=== PATIENT | female | born 1975 | race Caucasian/White ===

== ENCOUNTER 2016-03-30 15:56 | Emergency (ER) | payer MEDICARE, MEDICAID ==
--- NOTE | 2016-03-30 16:24 | ER Document Report ---
ED Medical Screen (RME) - General Stated Complaint: POSSIBLE ABSCESS Mode of Arrival: Ambulatory Information source: Patient Notes: Patient presents to the emergency department with complaints of vaginal abscess that started 3 days ago. Denies fever vomiting diarrhea reports upset stomach. Denies history of MRSA I have greeted and performed a rapid initial assessment of this patient. A comprehensive ED assessment and evaluation of the patient, analysis of test results and completion of the medical decision making process will be conducted by additional ED providers. TRAVEL OUTSIDE OF THE [place] IN LAST 30 DAYS: No Past Medical History Pulmonary Medical History: Reports: Hx COPD Psychiatric Medical History: Reports: Hx Bipolar Disorder, Hx Post Traumatic Stress Disorder Past Surgical History: Reports: Hx Breast Surgery - lumpectomy, Hx Mastectomy - LP shunt, Hx Orthopedic Surgery - left ankle, Hx Tubal Ligation Physical Exam - Vital signs Vitals: Temp Pulse Resp BP Pulse Ox 98.0 F 94 16 129/73 H 97 03/30/16 15:59 03/30/16 15:59 03/30/16 15:59 03/30/16 15:59 03/30/16 15:59 Course - Vital Signs Vital signs: Temp Pulse Resp BP Pulse Ox 98.0 F 94 16 129/73 H 97 03/30/16 15:59 03/30/16 15:59 03/30/16 15:59 03/30/16 15:59 03/30/16 15:59
[2016-03-30] MEDS ORDERED: LIDOCAINE 2% JELLY 30 ML TUBE TOP ONE (19:25)
[2016-03-30] MEDS ORDERED: DOXYCYCLINE HYCLATE 100 MG TABLET PO ONE (19:25)
--- NOTE | 2016-03-30 19:31 | ER Document Report ---
ED Skin Rash/Insect Bite/Abscs - General Chief Complaint: Abscess Stated Complaint: POSSIBLE ABSCESS Mode of Arrival: Ambulatory Information source: Patient Notes: Pt is a 40 year old female who presents to the ER today for possible abscess to her vagina x 2 days. She denies fever, chills, drainage, hx of MRSA or abscesses , herpes. TRAVEL OUTSIDE OF THE [place] IN LAST 30 DAYS: No - Related Data Allergies/Adverse Reactions: acetaminophen [From Tylenol-Codeine #3] Allergy (Verified 03/30/16 16:25) codeine [From Tylenol-Codeine #3] Allergy (Verified 03/30/16 16:25) Penicillins Allergy (Verified 03/30/16 16:25) Past Medical History - General Information source: Patient - Social History Smoking Status: Current Every Day Smoker Chew tobacco use (# tins/day): No Drug Abuse: None Family History: Reviewed & Not Pertinent Patient has suicidal ideation: No Patient has homicidal ideation: No Pulmonary Medical History: Reports: Hx COPD Renal/ Medical History: Denies: Hx Peritoneal Dialysis Psychiatric Medical History: Reports: Hx Bipolar Disorder, Hx Post Traumatic Stress Disorder Past Surgical History: Reports: Hx Breast Surgery - lumpectomy, Hx Mastectomy - LP shunt, Hx Orthopedic Surgery - left ankle, Hx Tubal Ligation Review of Systems - Review of Systems Constitutional: No symptoms reported EENT: No symptoms reported Cardiovascular: No symptoms reported Respiratory: No symptoms reported Gastrointestinal: No symptoms reported Genitourinary: No symptoms reported Female Genitourinary: See HPI Musculoskeletal: No symptoms reported Skin: See HPI Hematologic/Lymphatic: No symptoms reported Neurological/Psychological: No symptoms reported Physical Exam - Vital signs Vitals: Temp Pulse Resp BP Pulse Ox 98.0 F 94 16 129/73 H 97 03/30/16 15:59 03/30/16 15:59 03/30/16 15:59 03/30/16 15:59 03/30/16 15:59 - Notes Notes: PHYSICAL EXAMINATION: GENERAL: Well-appearing and in no acute distress. HEAD: Atraumatic, normocephalic. EYES: Pupils equal round and reactive to light, extraocular movements intact, sclera anicteric, conjunctiva are normal. NECK: Normal range of motion, supple without lymphadenopathy LUNGS: CTAB and equal. No wheezes rales or rhonchi. HEART: Regular rate and rhythm without murmurs ABDOMEN: Soft, no tenderness. No guarding, no rebound EXTREMITIES: Normal range of motion, no pitting edema. No cyanosis. NEUROLOGICAL: Cranial nerves grossly intact. Normal sensory/motor exams. PSYCH: Normal mood, normal affect. SKIN: Warm, Dry, normal turgor, erythematous ulcer with purulent discharge, no fluctuance, induration or edema at all, tender to palpation Course - Re-evaluation Re-evalutation: 03/30/16 19:33 Wound culture pending. Patient placed on doxycycline due to allergies to Bactrim and penicillin. Clinically this is more consistent with infected ulcer of the skin, I do not appreciate any abscess at all. - Vital Signs Vital signs: Temp Pulse Resp BP Pulse Ox 98.0 F 94 16 129/73 H 97 03/30/16 15:59 03/30/16 15:59 03/30/16 15:59 03/30/16 15:59 03/30/16 15:59 Discharge - Discharge Clinical Impression: Ulcer of genital labia Infected ulcer of skin Qualifiers: Non-pressure ulcer stage: limited to breakdown of skin Qualified Code(s): L98.491 - Non-pressure chronic ulcer of skin of other sites limited to breakdown of skin Condition: Stable Disposition: HOME, SELF-CARE Additional Instructions: Return immediately for any new or worsening symptoms. Follow up with primary care provider, call tomorrow to make followup appointment. Prescriptions: Doxycycline Hyclate 100 mg PO BID #14 capsule Forms: Return to Work
[2016-03-30 20:50] VITALS: BP 111/76
== END 2016-03-30 20:12 | disposition home or self-care (01) ==
LOC: ER 15:56
DX: N76.6 Ulceration of vulva (principal); L98.491 Non-pressure chronic ulcer of skin of other sites limited to breakdown of skin; F17.210 Nicotine dependence, cigarettes, uncomplicated
CPT/HCPCS: 99282; 87070; 87205; A9270; 87075; 87077

== ENCOUNTER 2016-08-21 13:43 | Emergency (ER) | payer MEDICARE, MEDICAID ==
[2016-08-21 13:49] VITALS: BP 129/83
[2016-08-21] MEDS ORDERED: KETOROLAC TROMETHAMINE 60 MG/2 ML SDV IM ONE (17:26)
--- NOTE | 2016-08-21 17:31 | ER Document Report ---
HPI - HPI Patient complains to provider of: right side neck and shoulder pain Onset: Last week Onset/Duration: Sudden, Persistent Quality of pain: Achy Severity: Severe Pain Level: 4 Context: Patient presents to the emergency department with complaints of right sided neck and shoulder pain. She reports the pain runs down her right arm. Reports pain with movement. She reports she was moving furniture last week and her shoulder started hurting afterwards. Denies trauma.. She denies past medical history of injury to the shoulder or arm. She reports she has been taking naproxen and ibuprofen without relief of symptoms. Associated Symptoms: None Exacerbated by: Movement Relieved by: Denies Similar symptoms previously: No Recently seen / treated by doctor: No - DERM Skin Color: Normal Past Medical History - General Information source: Patient Last Menstrual Period: 08/16/16 - Social History Smoking Status: Current Every Day Smoker Cigarette use (# per day): Yes Frequency of alcohol use: None Drug Abuse: None Family History: Reviewed & Not Pertinent Patient has suicidal ideation: No Patient has homicidal ideation: No Pulmonary Medical History: Reports: Hx COPD Renal/ Medical History: Denies: Hx Peritoneal Dialysis Psychiatric Medical History: Reports: Hx Bipolar Disorder, Hx Post Traumatic Stress Disorder Past Surgical History: Reports: Hx Breast Surgery - lumpectomy, Hx Mastectomy - LP shunt, Hx Orthopedic Surgery - left ankle, Hx Tubal Ligation Vertical Provider Document - CONSTITUTIONAL Agree With Documented VS: Yes Exam Limitations: No Limitations General Appearance: WD/WN, No Apparent Distress - INFECTION CONTROL TRAVEL OUTSIDE OF THE [place] IN LAST 30 DAYS: No - HEENT HEENT: Atraumatic, Normocephalic - NECK Neck: Normal Inspection - right sided neck pain, no vertebral tenderness, no erythema/warmth/swelling, Supple. negative: Lymphadenopathy-Left, Lymphadenopathy-Right - RESPIRATORY Respiratory: Breath Sounds Normal, No Respiratory Distress O2 Sat by Pulse Oximetry: 97 - CARDIOVASCULAR Cardiovascular: Regular Rate - MUSCULOSKELETAL/EXTREMETIES Musculoskeletal/Extremeties: Tender - right shoulder ttp, c/o pain with active/ passive movement when lifting arm above head, anteriorly and laterally, no obvious deformity, no swelling/no warmth/no erythema, good radial pulse - NEURO Level of Consciousness: Awake, Alert, Appropriate Motor/Sensory: No Motor Deficit - DERM Integumentary: Warm, Dry Adult Front & Back Diagram: 1 - c/o pain Course - Re-evaluation Re-evalutation: 08/21/16 17:30 Patient instructed on muscle relaxer and Toradol. Patient was instructed on the importance of follow-up with Dr. Nguyễn for referral to orthopedics. She verbalized understanding. - Vital Signs Vital signs: Temp Pulse Resp BP Pulse Ox 98.6 F 94 16 129/83 H 97 08/21/16 13:46 08/21/16 13:46 08/21/16 13:46 08/21/16 13:46 08/21/16 13:46 Discharge - Discharge Clinical Impression: right side neck and shoulder pain, Elevated blood pressure reading Condition: Stable Disposition: HOME, SELF-CARE Instructions: Toradol Injection ([facility]), Muscle Relaxers ([facility]), Ice Packs ([facility]) Additional Instructions: *You have been evaluated for right shoulder and neck pain *Rest/Ice packs as indicated *Follow up with Dr Nguyễn this week for referral to orthopedics as indicated *Take medication as prescribed *Return to ED for worsening condition, changes, needs Monitor your blood pressure. Your blood pressure was elevated today. This may be because you were anxious, in pain or because you need medication. It is important to follow up with your primary care provider for full evaluation. Prescriptions: Cyclobenzaprine HCl [Flexeril 5 mg Tablet] 5 mg PO TID #15 tablet Forms: Elevated Blood Pressure
== END 2016-08-21 18:02 | disposition home or self-care (01) ==
LOC: ER 13:43
DX: M54.2 Cervicalgia (principal); M25.511 Pain in right shoulder; M79.601 Pain in right arm; R03.0 Elevated blood-pressure reading, without diagnosis of hypertension; F17.210 Nicotine dependence, cigarettes, uncomplicated; J44.9 Chronic obstructive pulmonary disease, unspecified; Z98.51 Tubal ligation status
CPT/HCPCS: 99283; 96372; J1885

== ENCOUNTER → 2016-09-04 | Outpatient (CLI) | payer MEDICARE, MEDICAID ==
--- NOTE | 2016-09-04 12:03 | RADIOLOGY REPORT (SQ) ---
EXAM DESCRIPTION: SHOULDER RIGHT 2 OR MORE VIEWS COMPLETED DATE/TIME: 09/04/2016 11:21 am REASON FOR STUDY: PAIN IN RIGHT SHOULDER M25.511 PAIN IN RIGHT SHOULDER COMPARISON: None. NUMBER OF VIEWS: Three views. TECHNIQUE: Internal rotation, external rotation, and Y view images acquired of the right shoulder. LIMITATIONS: None. FINDINGS: MINERALIZATION: Normal. BONES: No acute fracture or dislocation. No worrisome bone lesions. JOINTS: No dislocation. VISUALIZED LUNGS AND RIBS: No pneumothorax. No rib fracture. SOFT TISSUES: No radiopaque foreign body. OTHER: No other significant finding. IMPRESSION: NEGATIVE STUDY OF THE RIGHT SHOULDER. NO RADIOGRAPHIC EVIDENCE OF ACUTE INJURY. TECHNICAL DOCUMENTATION: JOB ID: [id number] [employer]- All Rights Reserved
== END ==
LOC: OD 10:55
PROVIDERS: ATTEND Physician Assistant
DX: M25.511 Pain in right shoulder (principal)

== ENCOUNTER → 2016-10-13 | Outpatient (CLI) | payer MEDICARE, MEDICAID ==
--- NOTE | 2016-10-13 17:20 | WOMENS IMAGING REPORT ---
EXAM DESCRIPTION: 3D SCREENING MAMMO BILAT COMPLETED DATE/TIME: 10/13/2016 1:56 pm REASON FOR STUDY: ROUTINE SCREENING; Z12.31 Z12.31 ENCNTR SCREEN MAMMOGRAM FOR MALIGNANT NEOPLASM O F MANUELA COMPARISON: Baseline study TECHNIQUE: Standard craniocaudal and mediolateral oblique views of each breast recorded using digita l acquisition and breast tomosynthesis. LIMITATIONS: None. FINDINGS: No masses, calcifications or architectural distortion. No areas of suspicion. Read with the assistance of CAD. .[facility] - R2 Cenova Version 1.3 .[facility] - R2 Cenova Version 1.3 .[facility] - R2 Cenova Version 2.4 .[facility] R2 Cenova Version 2.4 .[facility] - R2 Rn Interventional Version 9.2 IMPRESSION: NORMAL MAMMOGRAM. BIRADS 1. BREAST DENSITY: c. The breasts are heterogeneously dense, which may obscure small masses. BIRAD: 1 NEGATIVE RECOMMENDATION: ROUTINE SCREENING Please continue yearly bilateral screening tomosynthesis in October 2017 COMMENT: The patient has been notified of the results by letter per SA requirements. Additional no tification policies are in place for contacting patient with suspicious or incomplete findings. Quality ID #225: The [employer] recommends an annual screening mammogram for women aged 40 years or over. This facility utilizes a reminder system to ensure that all patients receive reminder letters, and/or direct phone calls for appointments. This includes reminders for routine scr eening mammograms, diagnostic mammograms, or other Breast Imaging Interventions when appropriate. Th is patient will be placed in the appropriate reminder system. The [employer] (ACR) has developed recommendations for screening MRI of the breast s in certain patient populations, to be used in conjunction with mammography. Breast MRI surveillanc e may be appropriate for women with more than 20% lifetime risk of developing breast cancer as deter mined by genetic testing, significant family history of the disease, or history of mantle radiation f or Hodgkins Disease. ACR Practice Guidelines 2008. DBT Technology DBT is a type of tomographic mammography. With conventional mammography, overlapping breast tissue ma y make lesions difficult to detect, even with good compression. DBT uses an x-ray tube that rotates a round the breast, taking images at different angles. These images are then combined to create thin sl ices of the breast that the radiologist can view as a 3D reconstruction. The [employer] unit can perform full-field digital mammograms (2D imaging); or DBT (3D imaging); or both, in a combination mode that quickly performs both the mammogram and the tomosynthesis scan while the breast is still compressed. PQRS 6045F: Fluoroscopic imaging is not utilized for breast tomosynthesis. TECHNICAL DOCUMENTATION: FINDING NUMBER: (1) ASSESSMENT: (1) JOB ID: [id number] [employer]- All Rights Reserved
== END ==
LOC: WI 13:08
PROVIDERS: ATTEND Physician Assistant
DX: Z12.31 Encounter for screening mammogram for malignant neoplasm of breast (principal)
CPT/HCPCS: 77063; G0202; 77067

== ENCOUNTER → 2016-10-17 | Outpatient (CLI) | payer MEDICARE, MEDICAID ==
[2016-10-17 14:53] LABS: ANION GAP 11 (5-19); BLOOD UREA NITROGEN 8 mg/dL (7-20); CALCIUM 9.6 mg/dL (8.4-10.2); CARBON DIOXIDE 24 mmol/L (22-30); CHLORIDE 104 mmol/L (98-107); GLUCOSE 127 mg/dL (75-110); POTASSIUM 4.5 mmol/L (3.6-5.0); SODIUM 139.4 mmol/L (137-145)
== END ==
LOC: OD 13:15
PROVIDERS: ATTEND Orthopaedic Surgery
DX: Z01.810 Encounter for preprocedural cardiovascular examination (principal); Z01.812 Encounter for preprocedural laboratory examination; Z01.818 Encounter for other preprocedural examination
CPT/HCPCS: 36415; 80048

== ENCOUNTER 2016-10-19 08:39 | Day surgery (SDC) | payer MEDICARE, MEDICAID ==
[2016-10-13 11:07] LABS: ABSOLUTE BASOPHILS # (AUTO) 0.1 10^3/uL (0.0-0.2); ABSOLUTE EOSINOPHILS # (AUTO) 0.5 10^3/uL (0.0-0.6); ABSOLUTE LYMPHOCYTES (AUTO) 2.4 10^3/uL (0.5-4.7); ABSOLUTE MONOCYTES (AUTO) 1.1 10^3/uL (0.1-1.4); ABSOLUTE NEUT (AUTO) 7.4 10^3/uL (1.7-8.2); BASOPHILS % (AUTO) 0.5 % (0-2); EOSINOPHILS % (AUTO) 4.3 % (0-6); HEMATOCRIT 38.6 % (36.0-47.0); HEMOGLOBIN 12.8 g/dL (12.0-15.5); HGB HCT DIFFERENCE -0.2; LYMPHOCYTES % (AUTO) 20.9 % (13-45); MEAN CORPUSCULAR HGB CONC 33.1 g/dL (32.0-36.0); MEAN CORPUSCULAR VOLUME 88 fl (80-97); MONOCYTES % (AUTO) 9.7 % (3-13); RED CELL DISTRIBUTION WIDTH 15.4 % (11.5-14.0); SEGMENTED NEUTROPHILS % (AUTO) 64.6 % (42-78); WHITE BLOOD COUNT 11.5 10^3/uL (4.0-10.5)
[2016-10-13 11:14] LABS: APPEARANCE,URINE SLIGHTLY-CLOUDY; BILIRUBIN,URINE NEGATIVE (NEGATIVE); GLUCOSE, URINE NEGATIVE (NEGATIVE); KETONES,URINE NEGATIVE (NEGATIVE); LEUKOCYTE ESTERASE,URINE TRACE (NEGATIVE); NITRITE,URINE NEGATIVE (NEGATIVE); PROTEIN,URINE 30 mg/dL (NEGATIVE); URINE SPECIFIC GRAVITY 1.005; UROBILINOGEN,URINE NEGATIVE mg/dL (<2.0)
--- NOTE | 2016-10-13 11:25 | RADIOLOGY REPORT (SQ) ---
EXAM DESCRIPTION: CHEST PA/LATERAL COMPLETED DATE/TIME: 10/13/2016 10:59 am REASON FOR STUDY: PRE OP COMPARISON: 12/20/2015 EXAM PARAMETERS: NUMBER OF VIEWS: two views TECHNIQUE: Digital Frontal and Lateral radiographic views of the chest acquired. RADIATION DOSE: NA LIMITATIONS: none FINDINGS: LUNGS AND PLEURA: No opacities, masses or pneumothorax. No pleural effusion. MEDIASTINUM AND HILAR STRUCTURES: No masses or contour abnormalities. HEART AND VASCULAR STRUCTURES: Heart normal size. No evidence for failure. BONES: No acute findings. HARDWARE: None in the chest. OTHER: No other significant finding. IMPRESSION: NO SIGNIFICANT RADIOGRAPHIC FINDING IN THE CHEST. TECHNICAL DOCUMENTATION: JOB ID: [id number] [employer]- All Rights Reserved
[2016-10-13 11:40] LABS: ANION GAP 15 (5-19); BLOOD UREA NITROGEN 11 mg/dL (7-20); CALCIUM 9.5 mg/dL (8.4-10.2); CARBON DIOXIDE 27 mmol/L (22-30); CHLORIDE 103 mmol/L (98-107); CREATININE RESULT 0.84 mg/dL (0.52-1.25); GLUCOSE 77 mg/dL (75-110); POTASSIUM 5.1 mmol/L (3.6-5.0); SODIUM 144.5 mmol/L (137-145)
--- NOTE | 2016-10-13 13:01 | EKG REPORT ---
SEVERITY:- NORMAL ECG - SINUS RHYTHM : Confirmed by: Krystle Cabral 13-Oct-2016 13:00:05
[~2016-10-19 08:39] MED LIST: CLINDAMYCIN 600 MG/D5W RTU 600 MG/50 ML RTUPB IV PRN; LACTATED RINGERS 1000 ML IV PRN; LIDOCAINE 0.5% INJ-PF (5 MG/ML) 50 ML SDV SUBCUT PRN
[2016-10-19] MEDS ORDERED: BUPIVACAINE HCL 0.5%-EPI 1:200000 INJ/PF 30 ML VIAL ONE (09:41)
[2016-10-19] MEDS ORDERED: HYDROMORPHONE HCL INJ/PF 2 MG/ML AMPULE ONE (10:54)
[2016-10-19] MEDS ORDERED: PROPOFOL INJ 200 MG/20 ML VIAL IV ONE (10:54)
[2016-10-19] MEDS ORDERED: MIDAZOLAM 2 MG/2 ML INJ ONE (10:54)
[2016-10-19] MEDS ORDERED: IBUPROFEN INJ 800 MG/8 ML VIAL IV ONE (10:55)
[2016-10-19] MEDS ORDERED: ACETAMINOPHEN 0 ML IV ONE (10:55)
[2016-10-19] MEDS ORDERED: MORPHINE SULFATE 10 MG/ML INJ IV PRN (11:22)
[2016-10-19] MEDS ORDERED: ONDANSETRON HCL INJ/PF 4 MG/2 ML SDV IV PRN (11:22)
[2016-10-19] MEDS ORDERED: FENTANYL CITRATE INJ/PF 100 MCG/2 ML AMPUL IV PRN ×3 (11:22)
[2016-10-19] MEDS ORDERED: PROMETHAZINE HCL INJ 25 MG/1 ML VIAL IV PRN ×2 (11:22)
[2016-10-19] MEDS ORDERED: DIPHENHYDRAMINE HCL 50 MG/ML VIAL IV PRN (11:22)
[2016-10-19] MEDS ORDERED: MEPERIDINE HCL/PF INJ 25 MG/1 ML DISP.SYRIN IV PRN (11:22)
--- NOTE | 2016-10-19 12:14 | PDOC DISCHARGE SUMMARY ---
Discharge Summary (SDC) - Discharge Final Diagnosis: Removal of hardware left ankle Date of Surgery: 10/19/16 Discharge Date: 10/19/16 Condition: Good Treatment or Instructions: Follow up in 2 weeks Weight bear as tolerated Ice and elevate Prescriptions: Tramadol HCl 50 mg PO Q6HP PRN #20 tablet PRN Reason: Referrals: JACE ALCARAZ PA [Primary Care Provider] - Respiratory Treatments at Home: Deep Breathing/Coughing Discharge Activity: Keep Legs Elevated, No Lifting Over 10 Pounds, Slowly Increase Activity Home Care Assistance: None Needed Report the Following to Your Physician Immediately: Shortness of Breath, Vomiting, Increase in Pain, Fever over 101 Degrees, Unusual Bleeding, Redness, Warmth, Drainage-Yellow, Drainage-Gloria, Drainage-Green, Drainage-Foul Smelling
[2016-10-19] MEDS ORDERED: TRAMADOL HCL 50 MG TABLET PO PRN (12:15)
[2016-10-19] MEDS ORDERED: MORPHINE SULFATE 10 MG/ML INJ ONE (12:26)
[2016-10-19] MEDS ORDERED: ONDANSETRON HCL INJ/PF 4 MG/2 ML SDV ONE (13:45)
[2016-10-19] MEDS ORDERED: DEXAMETHASONE SOD PHOSPHATE INJ 4 MG/1 ML VIAL ONE (13:45)
[2016-10-19] MEDS ORDERED: METOCLOPRAMIDE HCL INJ/PF 10 MG/2 ML SDV ONE (13:45)
[2016-10-19] MEDS ORDERED: LIDOCAINE 2% INJ-PF (20 MG/ML) 10 ML AMPUL ONE (13:45)
--- NOTE | 2016-10-19 13:48 | Operative Report ---
Operative Report DATE OF SURGERY: 10/19/16 PREOPERATIVE DIAGNOSIS: Painful retained hardware left ankle POSTOPERATIVE DIAGNOSIS: Same OPERATION: removal of hardware left ankle. SURGEON: JAMESON OLIVA ANESTHESIA: LMAC TISSUE REMOVED OR ALTERED: none COMPLICATIONS: None ESTIMATED BLOOD LOSS: 10mL INTRAOPERATIVE FINDINGS: As above. PROCEDURE: Patient was brought to the operating room after receiving preoperative antibiotics in the holding area. Patient was placed in supine position where she was successfully intubated. Thigh tourniquet was applied to the left lower extremity. Left lower extremity was prepped and draped in a normal surgical fashion. Timeout was done identifying the left ankle lateral malleolus incision as the correct site. X-rays were placed on the monitor to review before surgery. The extremity was elevated and the tourniquet was inflated at 300 mmHg. Same lateral incision over the lateral malleolus was done. Dissection was taken down to the bone and plate interval. Periosteal elevator was used to do believe the tissue off of the lateral plate and prominent screws. I used a screw removal set and used a 4 5 and 3 5 screws heads to remove the syndesmotic screw and the screws in the fibula. All screws were removed successfully and the plate was then relieved and elevated off of the bone and resected as well. I did used a curette to clean out the syndesmotic incision and hole in remove most of the fibrous tissue. Copious irrigation with bulb syringe was done. 2-0 Vicryl was used to approximate the scar tissue and dermis and then 3-0 nylon was used to close the skin in a horizontal fashion. Pictures with the C-arm were taken to confirm full removal of plate and screws with no residual hardware. No fractures were noted.
[2016-10-19 14:34] VITALS: BP 126/81
--- NOTE | 2016-10-20 18:13 | RADIOLOGY REPORT (SQ) ---
EXAM DESCRIPTION: ANKLE LEFT AP/LATERAL; NO CHG FLUORO COMPLETED DATE/TIME: 10/19/2016 12:57 pm REASON FOR STUDY: HARDWARE REMOVAL LEFT ANKLE ASSISTED WITH FLUORO IN OR T84.398A [facility] COMPL OF OTH BONE DEVICES, IMPLANTS AND GRAFTS Z79.01 [facility] (CURRENT) USE OF ANTICOAGULANTS COMPARISON: None. FLUOROSCOPY TIME: Less than 10 seconds 1 C-arm image saved to PACS. TECHNIQUE: Intra-operative images acquired during surgical procedure to evaluate progress. NUMBER OF IMAGES: 1 C-arm image LIMITATIONS: None. FINDINGS: AP fluoroscopic image left ankles shows hardware removal. IMPRESSION: Intra procedural imaging and fluoro as above COMMENT: Quality ID 145: Final reports for procedures using fluoroscopy that document radiation exp osure indices, or exposure time and number of fluorographic images (if radiation exposure indices are not available) Please consult full operative report of the attending physician for description of the procedure. TECHNICAL DOCUMENTATION: JOB ID: [id number] [employer]- All Rights Reserved
--- NOTE | 2016-10-20 18:13 | RADIOLOGY REPORT (SQ) ---
EXAM DESCRIPTION: ANKLE LEFT AP/LATERAL; NO CHG FLUORO COMPLETED DATE/TIME: 10/19/2016 12:57 pm REASON FOR STUDY: HARDWARE REMOVAL LEFT ANKLE ASSISTED WITH FLUORO IN OR T84.398A [facility] COMPL OF OTH BONE DEVICES, IMPLANTS AND GRAFTS Z79.01 [facility] (CURRENT) USE OF ANTICOAGULANTS COMPARISON: None. FLUOROSCOPY TIME: Less than 10 seconds 1 C-arm image saved to PACS. TECHNIQUE: Intra-operative images acquired during surgical procedure to evaluate progress. NUMBER OF IMAGES: 1 C-arm image LIMITATIONS: None. FINDINGS: AP fluoroscopic image left ankles shows hardware removal. IMPRESSION: Intra procedural imaging and fluoro as above COMMENT: Quality ID 145: Final reports for procedures using fluoroscopy that document radiation exp osure indices, or exposure time and number of fluorographic images (if radiation exposure indices are not available) Please consult full operative report of the attending physician for description of the procedure. TECHNICAL DOCUMENTATION: JOB ID: [id number] [employer]- All Rights Reserved
== END 2016-10-19 14:45 | disposition home or self-care (01) ==
LOC: OROUT 08:39
PROVIDERS: ATTEND Orthopaedic Surgery
PROC: 0SPG04Z Removal of Internal Fixation Device from Left Ankle Joint, Open Approach (ICD-10-PCS; principal; 2016-10-19 10:45)
DX: T84.398A Other mechanical complication of other bone devices, implants and grafts, initial encounter (principal); X58.XXXA Exposure to other specified factors, initial encounter; M25.511 Pain in right shoulder; M25.572 Pain in left ankle and joints of left foot; M75.51 Bursitis of right shoulder; F17.210 Nicotine dependence, cigarettes, uncomplicated; Z79.01 Long term (current) use of anticoagulants; Z88.0 Allergy status to penicillin; Z88.2 Allergy status to sulfonamides; Z79.899 Other long term (current) drug therapy
CPT/HCPCS: 93005; 36415 ×2; 84132; 85025; 81025; 80048; 81001; 73600; 71020; 93010; 20680; J2250; J3490 ×2; J1100; J2765; J2270; J1170; J2405; J2704; A9270; J1741; 01480; J0131